=== PATIENT | male | born 1970 | race Asian ===

== ENCOUNTER 2017-10-07 14:27 | Emergency (ER) | payer SELFPAY ==
[~2017-10-07] VITALS: Ht 162.6 cm; Wt 72.6 kg
--- NOTE | 2017-10-07 16:47 | Emergency Room Report ---
History of Present Illness General Chief Complaint: Alcohol Intoxication Source: Patient Present Illness HPI Patient was brought in by paramedics for reports of alcohol ingestion Here the patient was laughing and joking with staff He does report drinking heavier than usual alcohol amount Patient reports that he lives in [facility] and would like to go home Denies any chest pain denies any short of breath Allergies: Coded Allergies: No Known Allergies (Unverified , 10/07/17) Patient History Past Medical History: see triage record Pertinent Family History: none Reviewed Nursing Documentation: PMH: Agreed; PSxH: Agreed Nursing Documentation-PMH Past Medical History: No Stated History Review of Systems All Other Systems: negative except mentioned in HPI Physical Exam Vital Signs Date Time Temp Pulse Resp B/P (MAP) Pulse Ox O2 Delivery O2 Flow Rate FiO2 10/07/17 14:23 98.5 84 16 142/88 100 Room Air 98.4 Sp02 EP Interpretation: reviewed, normal General Appearance: no apparent distress Head: normocephalic, atraumatic Eyes: bilateral eye PERRL, bilateral eye EOMI ENT: normal pharynx, no angioedema Neck: supple, thyroid normal Respiratory: lungs clear Cardiovascular #1: regular rate, rhythm, no edema Gastrointestinal: non tender, soft Genitourinary: no CVA tenderness Musculoskeletal: normal inspection, back normal Neurologic: alert, oriented x3 Skin: normal color, no rash Lymphatic: no adenopathy Medical Decision Making Diagnostic Impression: Primary Impression: Alcohol abuse ER Course Given the patient's presentation and history multiple differentials are considered Patient is verbal in the emergency room Reports drinking alcohol denies any trauma Patient also reported that he would like to go home however is not able to walk in a straight line appears inebriated Patient is allowed to rest After further observation patient is ambulatory Reports that he is missing one of his iPhones and requesting to go home Last Vital Signs Date Time Temp Pulse Resp B/P (MAP) Pulse Ox O2 Delivery O2 Flow Rate FiO2 10/07/17 14:23 98.5 84 16 142/88 100 Room Air 98.4 Status: improved Disposition: HOME, SELF-CARE Condition: Improved Additional Instructions: Patient is provided with the discharge instructions notified to follow up with primary doctor in the next 2-3 days otherwise return to the er with any worsening symptoms. Please note that this report is being documented using [email or web address] technology. This can lead to erroneous entry secondary to incorrect interpretation by the dictating instrument. Chetan Richter DO Oct 07, 2017 16:47
[2017-10-07 17:11] VITALS: BP 130/85
== END 2017-10-07 17:56 | disposition home or self-care (01) ==
LOC: EDBD 14:27 → EMR 15:04
DX: F10.10 Alcohol abuse, uncomplicated (principal)
CPT/HCPCS: 99283